=== PATIENT | male | born 1955 | race Caucasian/White ===

== ENCOUNTER 2020-08-23 09:54 | Outpatient (REF) | payer OTHER, SELFPAY ==
--- NOTE | 2020-08-23 | US_ITS ---
EXAMINATION: US ABDOMEN COMPLETE CLINICAL INFORMATION: Abdominal pain. COMPARISON: CT abdomen and pelvis 03/11/2016. TECHNIQUE: Real-time imaging of the abdominal viscera. FINDINGS: PANCREAS: Normal. ABDOMINAL AORTA: The upper and mid abdominal aorta is not well visualized. The distal abdominal aorta is normal in caliber. There is atherosclerotic vessel wall calcification. INFERIOR VENA CAVA: Visualized portions are normal. LIVER: Liver echotexture is increased suggestive of fatty infiltration. There is a hypoechoic area adjacent to the gallbladder, characteristic location of focal fatty sparing. No other focal liver lesion is seen. The liver is slightly enlarged. There is no intrahepatic biliary duct dilatation seen. GALLBLADDER: Normal. The gallbladder is physiologically distended without evidence of stones, sludge, polyps, wall thickening or pericholecystic fluid. COMMON BILE DUCT: Normal in caliber measuring 0.7 cm in diameter. RIGHT KIDNEY: Normal. No hydronephrosis. No renal calculi or focal parenchymal lesions. The kidney measures 12.3 cm in maximum dimension. LEFT KIDNEY: There 2 cysts measuring 1 and 2 cm in the lower pole. No hydronephrosis or renal calculi. The kidney measures 14.1 cm in maximum dimension. SPLEEN: Normal. The spleen measures 14.3 cm in maximum dimension. FREE FLUID: None. US/US abdomen complete IMPRESSION: Echogenic liver probably representing fatty infiltration. Left renal cysts. Limited visualization of the upper and mid abdominal aorta.
== END 2020-08-23 09:55 | disposition home or self-care (01) ==
LOC: HO.HMGCX 09:54
PROVIDERS: PCP Nurse Practitioner Family; Visit Provider Internal Medicine
DX: R10.13 Epigastric pain (principal)
CPT/HCPCS: 76700

== ENCOUNTER 2020-09-06 10:53 | Day surgery (SDC) | payer OTHER, SELFPAY ==
[2020-08-29 13:56] VITALS: BMI 33.9
--- NOTE | 2020-09-05 09:21 | HO.ANESPROP2 ---
Documented by User: Albina Mancini 09/05/20 09:22 HPI - Anesthesia Eval Consult details Narrative: 64yo M for Upper Endoscopy and Colonoscopy REPLACED BY [facility] Past Medical History Medical History Arthritis Asthma Elevated cholesterol GERD (gastroesophageal reflux disease) HTN (hypertension) Hx of gout Sleep apnea Surgical History Surgical History H/O colonoscopy History of esophagogastroduodenoscopy (EGD) Hx of appendectomy Hx of arthroscopic knee surgery Hx of foot surgery Social History Social History Smoking Status: Former smoker Smoked in Last 30 Days: No Smoking Quit Date: age 29 Use of substances other than those prescribed or required for medical reasons: No Advance Directives Information Provided: No Recently lost weight without trying: No Meds Allergies Allergy/AdvReac Type Severity Reaction Status Date / Time Penicillins [PENICILLINS] Allergy Intermediate HIVES Verified 08/29/20 14:01 salmeterol Allergy Intermediate rash Verified 08/29/20 14:01 Home Medications Medication Instructions Recorded Confirmed Type acetaminophen [Tylenol Extra 1,000 mg PO Q6H PRN 08/29/20 08/29/20 History Strength] albuterol [Ventolin] 90 mcg INHALATION Q4-6H PRN 08/29/20 08/29/20 History allopurinol 300 mg PO DAILY 08/29/20 08/29/20 History amlodipine 10 mg PO BEDTIME 08/29/20 08/29/20 History cetirizine 10 mg PO DAILY 08/29/20 08/29/20 History cholecalciferol (vitamin D3) 25 mcg PO DAILY 08/29/20 08/29/20 History [Vitamin D3] gabapentin 600 mg PO BEDTIME 08/29/20 08/29/20 History losartan 50 mg PO DAILY 08/29/20 08/29/20 History pantoprazole 40 mg PO DAILY 08/29/20 08/29/20 History pravastatin 40 mg PO BEDTIME 08/29/20 08/29/20 History prazosin 4 mg PO BEDTIME 08/29/20 08/29/20 History tramadol 50 mg PO BID PRN 08/29/20 08/29/20 History umeclidinium [Incruse Ellipta] 1 inh INHALATION DAILY 08/29/20 08/29/20 History Exam Exam Date and Time: September 05, 2020920 Height,Weight and Vital Signs: Height 5 ft 11 in Weight 110.223 kg Assessment and Plan Assessment Anesthesia Assessment: Chart Reviewed Documented by User: Flora Mcfarland 09/06/20 11:38 PMFSH Past Medical History Medical History Arthritis Asthma Elevated cholesterol GERD (gastroesophageal reflux disease) HTN (hypertension) Hx of gout Sleep apnea Surgical History Surgical History H/O colonoscopy History of esophagogastroduodenoscopy (EGD) Hx of appendectomy Hx of arthroscopic knee surgery Hx of foot surgery Social History Social History Smoking Status: Former smoker Smoked in Last 30 Days: No Smoking Quit Date: age 29 Use of substances other than those prescribed or required for medical reasons: No Advance Directives Information Provided: No Recently lost weight without trying: No Meds Allergies Allergy/AdvReac Type Severity Reaction Status Date / Time Penicillins [PENICILLINS] Allergy Intermediate HIVES Verified 08/29/20 14:01 salmeterol Allergy Intermediate rash Verified 08/29/20 14:01 Home Medications Medication Instructions Recorded Confirmed Type acetaminophen [Tylenol Extra 1,000 mg PO Q6H PRN 08/29/20 08/29/20 History Strength] albuterol [Ventolin] 90 mcg INHALATION Q4-6H PRN 08/29/20 08/29/20 History allopurinol 300 mg PO DAILY 08/29/20 08/29/20 History amlodipine 10 mg PO BEDTIME 08/29/20 08/29/20 History cetirizine 10 mg PO DAILY 08/29/20 08/29/20 History cholecalciferol (vitamin D3) 25 mcg PO DAILY 08/29/20 08/29/20 History [Vitamin D3] gabapentin 600 mg PO BEDTIME 08/29/20 08/29/20 History losartan 50 mg PO DAILY 08/29/20 08/29/20 History pantoprazole 40 mg PO DAILY 08/29/20 08/29/20 History pravastatin 40 mg PO BEDTIME 08/29/20 08/29/20 History prazosin 4 mg PO BEDTIME 08/29/20 08/29/20 History tramadol 50 mg PO BID PRN 08/29/20 08/29/20 History umeclidinium [Incruse Ellipta] 1 inh INHALATION DAILY 08/29/20 08/29/20 History Exam Airway Mallampati Class: II (Implants top front) TM Dist: >3cm Neck ROM: Full Heart: RRR Lungs: CTA BL Assessment and Plan Assessment Anesthesia Assessment: Anesthesia Plan Discussed and Chart Reviewed Final Anesthetic Review NPO: Yes ASA Class: III Final Preanesthetic Review: No Changes in Pt Med Stat and Consent Obtained/Reviewed Patient Risk: Intermediate Procedure Risk: Intermediate Anesthetic Plan Anesthetic Plan: MAC: Disposition: Standard PACU
[2020-09-06 11:39] VITALS: BP 131/88; PULSE 86; RESP 16; TEMP 36.5; O2SAT 98
[2020-09-06] MEDS: Lactated Ringers 1,000 ML 100 ML IVCONT (11:45)
[2020-09-06 13:05] VITALS: BP 116/70; PULSE 82; RESP 14; TEMP 37.7; O2SAT 97
--- NOTE | 2020-09-06 13:05 | PM.OP ---
Brief Operative Note Date of Service: 09/06/20 Pre-op diagnosis: GERD, Screening Post-op diagnosis: other (Hiatal hernia, GERD R/O Moss's, Gastric polyps, Gastritis, Colon polyps) Surgeon: Franklin Schultz Anesthesia: MAC Estimated blood loss (mL): 3.0 Pathology: other (A. Gastric antrum B. Gastric polyps. C. Esophagus 36-37cm D. Transverse colon polyps E. Cecal polyp F. Polyps at 60cm) Condition: stable Disposition: PACU
--- NOTE | 2020-09-06 13:13 | HO.POSTANES ---
Post Anesthesia Evaluation Post Anesthesia Evaluation Vital Signs: Vital Signs Temp Pulse Resp BP Pulse Ox 09/06/20 13:05 99.9 F 82 14 116/70 97 09/06/20 11:39 97.7 F 86 16 131/88 98 Anesthesia: Monitored Mental Status: Awake Pain Control: Satisfactory Nausea/Vomiting: None Hydration: Adequate Anesthesia-Related Issues: No Anes. Related Issues
[2020-09-06 13:20] VITALS: BP 134/75; PULSE 64; RESP 18; O2SAT 97
--- NOTE | 2020-09-06 23:30 | OP_ITS ---
SURGEON: Franklin Schultz MD INDICATIONS: The patient presents for evaluation of colorectal cancer screening and gastroesophageal reflux. Full consent has been obtained from him for this, including risks of bleeding and perforation. PREOPERATIVE DIAGNOSIS: Gastroesophageal reflux and colorectal cancer screening. POSTOPERATIVE DIAGNOSIS: Gastroesophageal reflux and colorectal cancer screening. Hiatal hernia, rule out Moss esophagus, gastric polyps, gastritis, colon polyps, diverticulosis, and internal hemorrhoids. PROCEDURE PERFORMED: Esophagogastroduodenoscopy with biopsy and colonoscopy to the cecum and terminal ileum with snare polypectomy, and biopsy and removal of polyps. ESTIMATED BLOOD LOSS: COMPLICATIONS: ANESTHESIA: Monitored anesthesia care. ASSISTANTS: SPECIMENS: DESCRIPTION OF PROCEDURE: The patient was placed in the left lateral decubitus position. An Olympus video gastroscope was passed in the posterior oropharynx and upper esophagus under direct vision. The scope was passed slowly into the distal esophagus. The gastroesophageal junction appeared at 37 cm. Extending from this to 36 cm were segments of probable Moss mucosa. There was no associated esophagitis, ulceration, nor any type of mass. The scope was entered into the stomach. There was a small hiatal hernia. The scope was advanced to pylorus. The duodenum was cannulated in the descending portion. The duodenum including the bulb appeared normal without mass or ulceration. Scope was withdrawn back to the stomach. The gastric antrum and body had some changes of gastritis with erythema and edema, but no erosions or ulceration. Biopsies were obtained from the antrum. In the gastric antrum along the greater curvature was what appeared to be a small diverticulum as well. This was not associated with any mass or ulceration. The scope was retroflexed visualizing the proximal stomach carefully, which appeared normal other than some mild gastritis and several hyperplastic and/or inflammatory appearing gastric polyps, all less than 10 mm. Several of these were biopsied. There was no mass or ulceration. The scope was straightened and withdrawn back to the esophagus. Biopsies were obtained between 36 cm and 37 cm. Proximal to this, the esophageal mucosa appeared normal. Scope was withdrawn from the patient. He was turned around for colonoscopy. The digital rectal exam revealed no abnormalities. The Olympus video pediatric colonoscope was entered into the rectum and advanced easily to the cecum. Once in the cecum, I did identify normal-appearing cecal pouch other than a several millimeter flat cecal polyp which was biopsied and completely removed with cold biopsy forceps. The entire cecum and appendiceal orifice appeared normal otherwise. The terminal ileum was cannulated and appeared normal. Scope was withdrawn back in the colon. The scope was then slowly withdrawn assessing all mucosal surfaces carefully. Preparation was excellent. In the transverse colon, there was an approximately 10 mm polyp, which was snared and recovered by suction. The polypectomy site appeared clean, without any sign of residual polyp nor bleeding. In this area, there was a flat approximately 3 mm or 4 mm polyp which was biopsied and completely removed with cold biopsy forceps. At 60cm was an approximately 8 mm to 10 mm polyp that was snared and recovered by suction. The polypectomy site appeared clean, without any sign of residual polyp nor bleeding. I did not visualize any other polyps, colitis, nor angiodysplasia. There was a mild amount of sigmoid diverticulosis. In the rectum, scope was retroflexed visualizing internal hemorrhoids, but no other pathology. The rectal mucosa appeared normal. The scope was straightened and withdrawn from the patient. He tolerated both procedures well and returned to the recovery area in stable condition. IMPRESSION: 1. Gastritis. 2. Gastric polyps. 3. Gastric diverticulum. 4. Hiatal hernia. 5. Rule out Moss esophagus. 6. Colon polyps. 7. Diverticulosis. 8. Internal hemorrhoids. PLAN: The results of the pathology will be checked. Assuming the colon polyps are tubular adenomas, I would recommend a followup colonoscopy in 5 years. He was advised to continue pantoprazole for reflux as he does report that his symptoms of discomfort have improved on the pantoprazole. He was advised to avoid aspirin and NSAIDs [facility] given the endoscopic findings in the stomach. If the upper endoscopy biopsies show Moss esophagus without dysplasia, I would then recommend repeat upper endoscopy in 3 years. He was advised to see me in 2 to 3 months for followup office visit. This has been discussed with his . MD CHIDI Cameron/AILEEN / [phone] COURT
== END 2020-09-06 14:05 | disposition home or self-care (01) ==
PROVIDERS: PCP Nurse Practitioner Family; Visit Provider Internal Medicine
PROC: (CPT 45385; principal; 2020-09-06 12:00)
DX: Z12.11 Encounter for screening for malignant neoplasm of colon (principal); D12.0 Benign neoplasm of cecum; D12.3 Benign neoplasm of transverse colon; D12.4 Benign neoplasm of descending colon; K57.30 Diverticulosis of large intestine without perforation or abscess without bleeding; K64.8 Other hemorrhoids; K21.9 Gastro-esophageal reflux disease without esophagitis; K29.50 Unspecified chronic gastritis without bleeding; K31.7 Polyp of stomach and duodenum; K44.9 Diaphragmatic hernia without obstruction or gangrene; I10 Essential (primary) hypertension; Z80.0 Family history of malignant neoplasm of digestive organs; J45.909 Unspecified asthma, uncomplicated; Z79.899 Other long term (current) drug therapy; Z88.1 Allergy status to other antibiotic agents; Z87.891 Personal history of nicotine dependence
CPT/HCPCS: 45385; 45380; 43239; 88305; 88342; J3010

== ENCOUNTER 2024-01-22 09:35 | Outpatient (AMB) | payer OTHER, SELFPAY ==
--- NOTE | 2024-01-22 09:44 | MHC.OFFVIS ---
Vital Signs 01/22/24 09:45 Height 5 ft 11 in Weight 209 lb BMI 29.1 BP 127/67 Blood Pressure Location Rt brachial Position Sitting Pulse 82 Pulse Source Doppler Pulse Oximetry (%) 97 Oxygen Delivery Method Room Air Intake Visit Reasons: emphysema Allergies Penicillins [PENICILLINS] Allergy (Intermediate, Verified 01/22/24 09:49) HIVES salmeterol Allergy (Intermediate, Verified 01/22/24 09:49) rash HPI HPI emphysema: Details: 68-year-old gentleman, former approximately 50 pack-year smoker, quit 35 years prior with underlying history of asthma and recent pulmonary function test at [facility] showing moderate obstructive ventilatory defect with significant bronchodilator response. Patient been using Incruse and albuterol MDI, however his symptoms actually get worse on Incruse secondary to poor tolerance of powder inhaler. Patient does have family history of lung disease with what appears to be COPD in his mother. 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 Patient has 3 dogs as pets. He denies dyspnea on exertion. He does complain of intermittent cough productive of grayish sputum. [facility], [facility] Medical History (Updated 01/22/24 @ 10:16 by Julian Thibodeaux MD) Hx of gout Arthritis GERD (gastroesophageal reflux disease) Sleep apnea Asthma Elevated cholesterol HTN (hypertension) Surgical History Hx of appendectomy Hx of arthroscopic knee surgery Hx of foot surgery History of esophagogastroduodenoscopy (EGD) H/O colonoscopy Social History (Updated 01/22/24 @ 09:50 by YENIFER Vides) Patient Tobacco Use Status: Former Tobacco user Years Smoked: Quit 35+ years ago Review of Systems Const Denies daytime sleepiness, Denies excessive sweating, Denies fatigue, Denies fever(s), Denies lethargy, Denies malaise, Denies night sweats, Denies snoring and Denies weight loss Eyes Denies blurry vision and Denies itchy eyes ENT Denies nasal congestion, Denies post nasal drip, Denies sinus pain, Denies sinus pressure and Denies other ( Thrush) Card Denies chest pain, Denies pedal edema, Denies dyspnea, Denies orthopnea and Denies paroxysmal nocturnal dyspnea Resp Denies cough, Denies hemoptysis, Denies excessive phlegm production, Denies dyspnea, Denies snoring and Denies wheezing GI Denies abdominal pain and Denies heartburn Musc Denies myalgias, Denies arthralgias and Denies joint swelling Skin/Breast Denies rash Neuro Denies memory loss and Denies seizure-like activity Psych Denies abnormal sleep pattern, Denies anxiety and Denies memory loss Endo Denies excessive sweating, Denies fatigue and Denies heat intolerance Kwabena/Lymph Denies easy bruising Aller/Immun Denies itchy eyes, Denies seasonal rhinorrhea and Denies wheezing Physical Exam Vital Signs: Last Vital Signs Pulse 82 01/22/24 09:45 BP 127/67 01/22/24 09:45 Pulse Ox 97 01/22/24 09:45 Oxygen Delivery Method Room Air 01/22/24 09:45 BMI result Body Mass Index 29.1 Const General: no acute distress and alert Nutritional Appearance: not obese Orientation/consciousness: Other orientation findings ( oriented) HEENT Head: Yes atraumatic Eyes General: appearance normal, both eyes and all related structures Sclerae: sclerae normal EOM: EOMs intact bilaterally Neck Neck: Yes supple Lymphatic: no lymphadenopathy noted Resp Effort & Inspection: normal respiratory effort and no use of accessory muscles Auscultation: clear to auscultation bilaterally Cardio Rate: regular rate Rhythm: regular rhythm Heart sounds: no gallops, no murmurs and no rubs Skin General skin exam: other ( warm) Extrem General: No clubbing, No cyanosis and No edema Assessment & Plan Assessment & Plan (1) Asthma-COPD overlap syndrome: Code(s): J44.89 - Other specified chronic obstructive pulmonary disease Category: Medical Plan: Suboptimally controlled as patient can not tolerate powder inhalers. Will switch Incruse to Symbicort. Continue albuterol MDI. Results of pulmonary function test reviewed and showed underlying moderate obstructive ventilatory defect with bronchodilator response. (2) Environmental allergies: Code(s): Z91.09 - Other allergy status, other than to drugs and biological substances Category: Medical Plan: Will obtain IgE level, CBC with differential, and RAST panel for further evaluation. Orders: Orders Complete Blood Count Auto Diff Today Z91.09 - Other allergy status, other than to drugs and biological substances Resp Allergy Profile Region I Today Z91.09 - Other allergy status, other than to drugs and biological substances Medications: New budesonide-formoterol 160-4.5 mcg/actuation (Symbicort) 2 puffs inhalation Q12H 10.2 grams 6RF 30 days Z91.09 - Other allergy status, other than to drugs and biological substances Coding Level of Care Code New Pt Level 4 (49243) Diagnoses Asthma-COPD overlap syndrome J44.89 Environmental allergies Z91.09
[2024-01-22 09:45] VITALS: BP 127/67; PULSE 82; O2SAT 97; BMI 29.1
== END 2024-01-22 10:04 | disposition home or self-care (01) ==
PROVIDERS: PCP Nurse Practitioner Family; Visit Provider Internal Medicine Pulmonary Disease
DX: J44.89 Other specified chronic obstructive pulmonary disease (principal); Z91.09 Other allergy status, other than to drugs and biological substances
CPT/HCPCS: 99204

== ENCOUNTER 2024-01-22 09:35 | Outpatient (REF) | payer OTHER, SELFPAY ==
[2024-01-22 10:29] LABS: MANUAL DIFF FLAG NO
[2024-01-22 10:54] LABS: Basophils Percent Auto 0.4 % (0-2); Eosinophils Absolute Auto 0.2 X10*3/uL (0.0-0.4); Eosinophils Percent Auto 3.8 % (0-4); Hematocrit 39.4 % (42.0-52.0); Hemoglobin 13.2 g/dl (14.0-18.0); Imm Gran Abs Auto 0.02 X10*3/uL (0.00-0.03); Imm Gran Pct Auto 0.4 % (0.0-0.4); Lymphocytes Absolute Auto 1.4 X10*3/uL (1.2-4.9); Lymphocytes Percent Auto 28.5 % (20-40); Mean Corpuscular HGB Conc 33.5 g/dl (31.0-36.0); Mean Corpuscular Hemoglobin 29.3 pg (27.0-33.0); Mean Corpuscular Volume 87.4 fL (80.0-98.0); Mean Platelet Volume 11.1 fL (9.4-12.4); Monocytes Absolute Auto 0.5 X10*3/uL (0.1-1.2); Monocytes Percent Auto 9.7 % (2-11); Neutrophils Absolute Auto 2.8 x10*3/uL (2.0-8.3); Neutrophils Percent Auto 57.2 % (45-73); Platelet Count 155 X10*3/uL (160-400); Red Blood Count 4.51 X10*6/uL (4.60-5.80); Red Cell Distribution Width 13.2 % (11.0-16.0)
[2024-02-05 12:16] LABS: Class Cockroach 0/1; Class Mouse Urine Protein 0; E072-IgE Mouse Urine <0.10; I006-IgE Cockroach, German 0.21 (H)
[2024-02-05 12:17] LABS: Class Dermatophagoides farinae 3
[2024-02-05 12:20] LABS: E001 - IgE Cat Dander <0.10
[2024-02-05 12:21] LABS: Class Cat Dander 0
[2024-02-05 12:22] LABS: Class Dog Dander 0/1; E005 - IgE Dog Dander 0.13 (H)
[2024-02-05 12:23] LABS: Class Alternaria alternata 0; Class Aspergillus fumigatus 0; Class Cladosporium herbarum 0; Class Mountain Cedar 0/1; Class Oak 0/1; Class Timothy Grass 2; Class Walnut Tree 0; M002 - IgE Cladosporium herbar <0.10; M003 - IgE Aspergillus fumigat <0.10; M006 - IgE Alternaria alternat <0.10; T006 - IgE Cedar, Mountain 0.12 (H); T007 - IgE Oak, White 0.34 (H); T010 - IgE Walnut <0.10
[2024-02-05 12:24] LABS: Class Bermuda Grass 1; Class Common Ragweed 0; Class Cottonwood 0; Class Derm. pterony 3; Class Mugwort 0; Class Sycamore 0; Class White Ash 0; Class White Mulberry 0; T011 - IgE Maple Leaf Sycamore <0.10; T014 - IgE Cottonwood <0.10; T015 - IgE Ash, White <0.10; T070 - IgE White Mulberry <0.10; W001 - IgE Ragweed, Short <0.10; W006 - IgE Mugwort <0.10
[2024-02-05 12:25] LABS: Class Penicillium crysogenum 0; M001 IgE Penicillium chrysogen <0.10
[2024-02-05 12:26] LABS: Class Birch 2; Class Elm 0; Class Maple Box Elder 0/1; Class Rough Pigweed 0; Class Sheep Sorrel 0; T003 IgE Common Silver Birch 0.96 (H); T008 IgE Elm, American <0.10; W014 IgE Pigweed, Common <0.10; W018 IgE Sheep Sorrel <0.10
== END 2024-01-22 09:36 | disposition home or self-care (01) ==
LOC: HO.LAB 09:35
PROVIDERS: PCP Nurse Practitioner Family; Visit Provider Internal Medicine Pulmonary Disease
DX: J44.89 Other specified chronic obstructive pulmonary disease (principal); Z91.09 Other allergy status, other than to drugs and biological substances
CPT/HCPCS: 36415; 82785; 85025; 86003; 99202

== ENCOUNTER 2024-09-30 08:46 | Outpatient (AMB) | payer OTHER, SELFPAY ==
[2024-09-30 08:50] VITALS: BP 124/60; PULSE 80; O2SAT 98; BMI 29.2
--- NOTE | 2024-09-30 08:50 | MHC.OFFVIS ---
Vital Signs 09/30/24 08:50 Height 5 ft 11 in Weight 209 lb 0.44 oz BMI 29.2 BP 124/60 Blood Pressure Location Lt brachial Position Sitting Pulse 80 Pulse Source Pulse Oximeter Pulse Oximetry (%) 98 Oxygen Delivery Method Room Air Intake Visit Reasons: emphysema Health Insurance Assessor Required: No Allergies Penicillins [PENICILLINS] Allergy (Intermediate, Verified 09/30/24 08:53) HIVES salmeterol Allergy (Intermediate, Verified 09/30/24 08:53) rash HPI HPI emphysema: Details: 69-year-old gentleman, former approximately 50 pack-year smoker, quit 35 years prior now followed for asthma/COPD overlap syndrome. Patient's symptoms are well controlled on current regimen of Symbicort 160 and albuterol MDI. Denies any recent exacerbations. He also continues on CPAP his underlying DREW with good control of his symptoms. [facility] Medical History (Updated 09/30/24 @ 09:20 by Julian Thibodeaux MD) Hx of gout Arthritis GERD (gastroesophageal reflux disease) Sleep apnea Asthma Elevated cholesterol HTN (hypertension) Surgical History Hx of appendectomy Hx of arthroscopic knee surgery Hx of foot surgery History of esophagogastroduodenoscopy (EGD) H/O colonoscopy Social History Patient Tobacco Use Status: Former Tobacco user Years Smoked: Quit 35+ years ago Review of Systems Const Denies daytime sleepiness, Denies excessive sweating, Denies fatigue, Denies fever(s), Denies lethargy, Denies malaise, Denies night sweats, Denies snoring and Denies weight loss Eyes Denies blurry vision and Denies itchy eyes ENT Denies nasal congestion, Denies post nasal drip, Denies sinus pain, Denies sinus pressure and Denies other ( Thrush) Card Denies chest pain, Denies pedal edema, Denies dyspnea, Denies orthopnea and Denies paroxysmal nocturnal dyspnea Resp Denies cough, Denies hemoptysis, Denies excessive phlegm production, Denies dyspnea, Denies snoring and Denies wheezing GI Denies abdominal pain and Denies heartburn Musc Denies myalgias, Denies arthralgias and Denies joint swelling Skin/Breast Denies rash Neuro Denies memory loss and Denies seizure-like activity Psych Denies abnormal sleep pattern, Denies anxiety and Denies memory loss Endo Denies excessive sweating, Denies fatigue and Denies heat intolerance Kwabena/Lymph Denies easy bruising Aller/Immun Denies itchy eyes, Denies seasonal rhinorrhea and Denies wheezing Physical Exam Vital Signs: Last Vital Signs Pulse 80 09/30/24 08:50 BP 124/60 09/30/24 08:50 Pulse Ox 98 09/30/24 08:50 Oxygen Delivery Method Room Air 09/30/24 08:50 BMI result Body Mass Index 29.2 Const General: no acute distress and alert Nutritional Appearance: not obese Orientation/consciousness: Other orientation findings ( oriented) HEENT Head: Yes atraumatic Eyes General: appearance normal, both eyes and all related structures Sclerae: sclerae normal EOM: EOMs intact bilaterally Neck Neck: Yes supple Lymphatic: no lymphadenopathy noted Resp Effort & Inspection: normal respiratory effort and no use of accessory muscles Auscultation: clear to auscultation bilaterally Cardio Rate: regular rate Rhythm: regular rhythm Heart sounds: no gallops, no murmurs and no rubs Skin General skin exam: other ( warm) Extrem General: No clubbing, No cyanosis and No edema Assessment & Plan Assessment & Plan (1) Asthma-COPD overlap syndrome: Code(s): J44.89 - Other specified chronic obstructive pulmonary disease Category: Medical Plan: Well controlled on current regimen of Symbicort and albuterol MDI. Continue current regimen. (2) DREW on CPAP: Code(s): G47.33 - Obstructive sleep apnea (adult) (pediatric) Category: Medical Plan: Well controlled on CPAP therapy. Continue CPAP therapy. Coding Level of Care Code Est Pt Level 4 (56517) Diagnoses Asthma-COPD overlap syndrome J44.89 DREW on CPAP G47.33
--- OUTSIDE RECORDS SUMMARY | 2024-09-30 11:35 | XMS_ITS ---
Author Organization [facility] Address Unknown Allergies, Adverse Reactions, Alerts Substance Reaction Status Noted Date Resolved Date PCN active Encounters Encounter Performer Performer Role Encounter Diagnoses Location Date Discharge - Discharged to home or self care - Private home/apt. with home health services [facility] 07/06/2010 06:33 pm EDT - 07/20/2010 09:00 pm EST Immunizations Vaccine Date Influenza 07/07/2010 12:00 am EDT Pneumovax 07/07/2010 12:00 am EDT Diptheria/Tetanus 07/05/2010 12:00 am EDT Social History
--- OUTSIDE RECORDS SUMMARY | 2024-09-30 11:35 | XMS_ITS | Patient Health Record ---
Author Organization [facility] Address [address] [place] [id number] Care Team Providers Care Cath Lab Nurse Name Role Phone Radhames LOCKE, Erasmo Primary Care Provider Franklin Gonzales Unavailable [phone] ALLERGIES Allergen (clinical drug ingredient) Drug/Non Drug Allergy documented on EMR Reaction Allergy Type Onset Date Status Penicillin (uncoded) Unknown Allergy Active REASON FOR REFERRAL No Information MEDICATIONS Medication SIG (Take, Route, Fr equency, Duration) Notes Start Date End Date Status Gabapentin Active Cholecal DF Active Pantoprazole Sodium Active Cetirizine HCl Activ e amLODIPine Besylate Active Pravastatin Sodium A ctive Losartan Potassium A ctive Losartan Potassium A ctive Ipratropium [place] Active Umeclidinium [place] Active traMADol HCl Active Prazosin HCl Active Allopurinol Active Albuterol Active Acetaminophen 500 MG Orally every 8 hours Active IMMUNIZATIONS Vaccine Route Administration Date Status Comme nts Influenza Unknown 06/07/2020 Administered SOCIAL HISTORY Tobacco Use: Social History Observation Description Date Details (start date - stop date) Never Smoker NA - NA Sex Assigned At : Social History Observation Description Sex Assigned At Unknown Tobacco Use/Smoking Question Answer Notes Patient is a nonsmoker Alcohol Screen Question Answer Notes Did you have a drink contain ing alcohol in the past year? Yes How often did you have a dri nk containing alcohol in the past year? 2 to 4 times a month (2 points) How often did you have 6 or more drinks on one occasion in the past year? Never (0 point) Points 2 Interpretation Negative PROBLEMS Problem Type ICD Code Onset Dates Problem Status W/U Status Risk SNOMED Code Notes Problem GERD (gastroesophageal reflux disease) (K21.9) Active confirmed Gastroesophagea l reflux disease (066969292) Problem Encounter for screening for malignant neoplasm of colon (Z12.11) Active confirmed Screening for malignant neoplasm of colon (197943708) Problem Abdominal pain, acute, epigastric (R10.13) Active confirmed Epigastric pain (08592915) Problem Gastroesophageal reflux disease without esophagitis (K21.9) Active confirmed 250262000 Problem Hiatal hernia (K44.9) Active confirmed 39012619 Problem Tubular adenoma of colon (D12.6) Active confirmed [id number] PLAN OF TREATMENT Pending Test Test Name Order Date US ABD 08/16/2020 Future Test Test Name Order Date UPPER GI ENDOSCOPY 08/16/2020 COLONOSCOPY 08/16/2020 Insurance Providers Payer Name Payer Address Payer Phone Subscriber Number Group Number Insured Name Patient Relationship to Insured Coverage Start Date Coverage End Date [facility] [employer] [address] [place] [address] [id number] LUCAS GRANT Self - patient is the insured MEDICAL (GENERAL) HISTORY Medical History History ICD Code Hyperlipidemia Hypertension Gout Allergies Asthma Anxiety Neg colonoscopy with Dr. Wilkes in approx 2009 GERD-describes an upper endo scopy > 10 yrs ago at the [facility]--EGD in 09/2020 revealed a small hiatal hernia and mild gastritis--esophageal biopsies were negative for Moss's esophagus and gastric biopsies were negative for H. pylori Denies [place],DM,CVA,renal disease Screening colonoscopy in Sep revealed small tubular adenomas that were removed Neg abdominal U/S in 08/2020 Surgical History Surgery Date(Month/Year) Appendectomy Foot surgery - Right Knee surgery - left Left foot - 3x
== END 2024-09-30 09:06 | disposition home or self-care (01) ==
LOC: HO.HPS 08:46
PROVIDERS: PCP Nurse Practitioner Family; Referring Provider Internal Medicine Pulmonary Disease; Visit Provider Internal Medicine Pulmonary Disease
DX: J44.89 Other specified chronic obstructive pulmonary disease (principal); G47.33 Obstructive sleep apnea (adult) (pediatric)
CPT/HCPCS: 99214

== ENCOUNTER → 2024-09-30 08:46 | Outpatient (BNVA) | payer OTHER, SELFPAY | PROVIDERS: PCP Nurse Practitioner Family; Visit Provider Internal Medicine Pulmonary Disease | DX: J44.89 Other specified chronic obstructive pulmonary disease (principal); G47.33 Obstructive sleep apnea (adult) (pediatric); Z99.89 Dependence on other enabling machines and devices; Z87.891 Personal history of nicotine dependence; Z79.899 Other long term (current) drug therapy | CPT/HCPCS: 99212 ==